=== PATIENT | male | born 1960 | race African-American/Black ===

== ENCOUNTER 2016-12-03 08:49 | Inpatient (IN) | payer MEDICAID ==
[~2016-12-03] VITALS: Ht 172.7 cm; Wt 76.3 kg
[~2016-12-03 08:49] MED LIST: LEVE10007 PO; MYCO500T3 PO; PRED1TAB PO; TACR1CAP4 PO; [UNRECOGNIZED DRUG - CODE] IM
[2016-12-03] MEDS ORDERED: SODIUM CHLORIDE FLUSH 10ML SYR IVF ONE (09:30)
[2016-12-03] MEDS ORDERED: ONDANSETRON 2MG/ML, 2ML IVPush ONE (09:30)
[2016-12-03] MEDS ORDERED: ONDANSETRON 2MG/ML, 2ML ONE (09:31)
[2016-12-03 09:41] LABS: HEMOGLOBIN 14.2 g/dL (13.7-18.0)
[2016-12-03 09:56] LABS: BLOOD UREA NITROGEN 46 mg/dL (7-18)
[2016-12-03 10:01] LABS: ASPARTATE AMINO TRANSFERASE 222 U/L (15-37)
[2016-12-03] MEDS ORDERED: SODIUM CHLORIDE 0.9% 1,000 ML IV ONE ×2 (10:17→11:16)
[2016-12-03] MEDS ORDERED: SODIUM CHLORIDE 0.9% 1,000ML IVBOLUS ONE (10:30)
[2016-12-03 10:43] LABS: HEPATITIS C VIRUS ANTIBODY Nonreactive (Nonreactive)
[2016-12-03] MEDS ORDERED: SODIUM CHLORIDE FLUSH 10ML SYR IVF PRN (11:30)
[2016-12-03] MEDS ORDERED: MORPHINE SULFATE 4 MG/ML, 1ML IVPush PRN (13:00)
[2016-12-03] MEDS ORDERED: POLYETHYLENE GLYCOL 17 GM PACKET PO PRN (13:00)
[2016-12-03] MEDS ORDERED: ONDANSETRON 2MG/ML, 2ML IVP PRN (13:00)
[2016-12-03] MEDS ORDERED: OXYcodone IR 5MG TABLET PO PRN (13:00)
[2016-12-03 13:36] VITALS: BP 117/70
[2016-12-03 14:00] VITALS: BP 117/70
[2016-12-03] MEDS: SODIUM CHLORIDE 0.9% 1,000 ML IV SCH (14:34)
[2016-12-03 15:52] LABS: PTH INTACT INTERPRETATION ** Comment **
[2016-12-03 16:22] LABS: PARATHYROID HORMONE INTACT 156.3 pg/mL (14-72)
[2016-12-03] MEDS: PANTOPRAZOLE GRAN. PKT 40 MG PO SCH (18:02)
[2016-12-03 19:05] VITALS: BP 108/63
[2016-12-03 20:22] LABS: ICTOTEST POSITIVE
[2016-12-03] MEDS: LEVETIRACETAM 500 MG TABLET PO SCH (20:37)
[2016-12-04] MEDS: SODIUM CHLORIDE 0.9% 1,000 ML IV SCH (00:52)
[2016-12-04 04:09] VITALS: BP 94/50
[2016-12-04 04:20] VITALS: BP 101/57
[2016-12-04 07:06] VITALS: BP 106/64
[2016-12-04 07:06] LABS: HEMOGLOBIN 12.3 g/dL (13.7-18.0)
[2016-12-04 07:12] LABS: ASPARTATE AMINO TRANSFERASE 153 U/L (15-37); BLOOD UREA NITROGEN 49 mg/dL (7-18)
[2016-12-04] MEDS: PANTOPRAZOLE GRAN. PKT 40 MG PO SCH (08:48)
[2016-12-04] MEDS: LEVETIRACETAM 500 MG TABLET PO SCH ×2 (08:48→21:46)
[2016-12-04] MEDS: SODIUM BICARB 8.4%,50ML SYR. 75 MEQ in SODIUM CHLORIDE 0.45% 1,000 ML IV SCH ×2 (12:06→22:49)
[2016-12-04 13:14] VITALS: BP 111/64
[2016-12-04 19:04] VITALS: BP 122/69
[2016-12-05 01:39] VITALS: BP 125/71
[2016-12-05 05:26] LABS: HEMOGLOBIN 11.6 g/dL (13.7-18.0)
[2016-12-05 05:39] LABS: BLOOD UREA NITROGEN 52 mg/dL (7-18)
[2016-12-05 05:43] LABS: ASPARTATE AMINO TRANSFERASE 146 U/L (15-37)
[2016-12-05] MEDS: LEVETIRACETAM 500 MG TABLET PO SCH ×2 (08:15→21:00)
[2016-12-05 08:51] VITALS: BP 110/74
[2016-12-05] MEDS: PANTOPROZOLE 40MG TABLET PO SCH (09:00)
[2016-12-05] MEDS: SODIUM BICARB 8.4%,50ML SYR. 75 MEQ in SODIUM CHLORIDE 0.45% 1,000 ML IV SCH ×2 (09:30→12:30)
[2016-12-05 14:07] VITALS: BP 120/79
[2016-12-05 15:43] LABS: ANA SCREEN NEGATIVE (Negative)
[2016-12-05 21:25] VITALS: BP 143/79
[2016-12-06] MEDS: SODIUM BICARB 8.4%,50ML SYR. 75 MEQ in SODIUM CHLORIDE 0.45% 1,000 ML IV SCH ×2 (00:09→17:41)
[2016-12-06 02:07] VITALS: BP 118/66
[2016-12-06 05:07] LABS: MYCOPHENOLIC ACID 0.6 ug/mL (1.0-3.5)
[2016-12-06 05:31] LABS: HEMOGLOBIN 11.3 g/dL (13.7-18.0)
[2016-12-06 05:41] LABS: BLOOD UREA NITROGEN 54 mg/dL (7-18)
[2016-12-06 05:45] LABS: ASPARTATE AMINO TRANSFERASE 183 U/L (15-37)
[2016-12-06 07:39] VITALS: BP 114/64
[2016-12-06] MEDS: LEVETIRACETAM 500 MG TABLET PO SCH ×2 (08:21→21:22)
[2016-12-06] MEDS: PANTOPROZOLE 40MG TABLET PO SCH (08:21)
[2016-12-06] MEDS ORDERED: FENTANYL PF 100 MCG/2ML ONE (12:56)
[2016-12-06] MEDS ORDERED: MIDAZOLAM 1 MG/ML, 2ML ONE (12:57)
[2016-12-06] MEDS ORDERED: PROPOFOL 10 MG/ML, 20ML ONE (12:59)
[2016-12-06] MEDS ORDERED: ONDANSETRON 2MG/ML, 2ML IVPush PRN (13:30)
[2016-12-06] MEDS ORDERED: OXYcodone 5 MG/5 ML ORAL.SOL UDC PO PRN (13:30)
[2016-12-06] MEDS ORDERED: HYDROmorphone 1 MG/ML, 1ML IV PRN (13:30)
[2016-12-06] MEDS ORDERED: FENTANYL PF 100 MCG/2ML IV PRN (13:30)
[2016-12-06 14:18] VITALS: BP 122/66
[2016-12-06 18:55] VITALS: BP 112/63
[2016-12-07 01:24] VITALS: BP 124/64
[2016-12-07 06:04] LABS: HEMOGLOBIN 11.6 g/dL (13.7-18.0)
[2016-12-07 06:10] LABS: ASPARTATE AMINO TRANSFERASE 295 U/L (15-37); BLOOD UREA NITROGEN 59 mg/dL (7-18)
[2016-12-07 06:43] VITALS: BP 128/76
[2016-12-07 06:53] VITALS: BP 118/69
[2016-12-07] MEDS: LEVETIRACETAM 500 MG TABLET PO SCH ×2 (10:35→20:19)
[2016-12-07] MEDS: PANTOPROZOLE 40MG TABLET PO SCH (10:35)
[2016-12-07] MEDS: SODIUM BICARB 8.4%,50ML SYR. 75 MEQ in SODIUM CHLORIDE 0.45% 1,000 ML IV SCH (10:55)
[2016-12-07 12:31] VITALS: BP 120/70
[2016-12-07 19:28] VITALS: BP 129/71
[2016-12-08 01:23] VITALS: BP 114/62
[2016-12-08] MEDS: SODIUM BICARB 8.4%,50ML SYR. 75 MEQ in SODIUM CHLORIDE 0.45% 1,000 ML IV SCH ×2 (04:17→17:56)
[2016-12-08 05:39] LABS: HEMOGLOBIN 11.3 g/dL (13.7-18.0)
[2016-12-08 05:58] LABS: ASPARTATE AMINO TRANSFERASE 380 U/L (15-37); BLOOD UREA NITROGEN 61 mg/dL (7-18)
[2016-12-08 07:51] VITALS: BP 107/63
[2016-12-08] MEDS: LEVETIRACETAM 500 MG TABLET PO SCH ×2 (09:18→21:06)
[2016-12-08] MEDS: PANTOPROZOLE 40MG TABLET PO SCH (09:18)
[2016-12-08 13:19] VITALS: BP 120/69
[2016-12-08 18:47] VITALS: BP 136/75
[2016-12-09 04:26] VITALS: BP 131/78
[2016-12-09 07:45] VITALS: BP 137/72
[2016-12-09] MEDS: PANTOPROZOLE 40MG TABLET PO SCH (07:49)
[2016-12-09] MEDS: LEVETIRACETAM 500 MG TABLET PO SCH ×2 (07:49→21:41)
[2016-12-09] MEDS: SODIUM BICARB 8.4%,50ML SYR. 75 MEQ in SODIUM CHLORIDE 0.45% 1,000 ML IV SCH ×2 (07:50→22:08)
[2016-12-09] MEDS ORDERED: PHYTONADIONE 10 MG/ML, 1ML SQ ONE (12:30)
[2016-12-09 13:12] VITALS: BP 126/75
[2016-12-09 18:55] VITALS: BP 132/74
[2016-12-10 05:08] VITALS: BP 115/64
[2016-12-10 06:15] LABS: BLOOD UREA NITROGEN 51 mg/dL (7-18)
[2016-12-10 06:18] LABS: ASPARTATE AMINO TRANSFERASE 318 U/L (15-37)
[2016-12-10] MEDS: PANTOPROZOLE 40MG TABLET PO SCH (07:51)
[2016-12-10] MEDS: LEVETIRACETAM 500 MG TABLET PO SCH ×2 (07:51→21:06)
[2016-12-10 08:03] VITALS: BP 126/70
[2016-12-10] MEDS: SODIUM BICARB 8.4%,50ML SYR. 75 MEQ in SODIUM CHLORIDE 0.45% 1,000 ML IV SCH (12:35)
[2016-12-10 14:41] VITALS: BP 126/72
[2016-12-10 20:00] VITALS: BP 130/74
[2016-12-11 02:00] VITALS: BP 121/65
[2016-12-11] MEDS: SODIUM BICARB 8.4%,50ML SYR. 75 MEQ in SODIUM CHLORIDE 0.45% 1,000 ML IV SCH (02:00)
[2016-12-11 05:46] LABS: HEMOGLOBIN 11.1 g/dL (13.7-18.0)
[2016-12-11 06:05] LABS: ASPARTATE AMINO TRANSFERASE 296 U/L (15-37); BLOOD UREA NITROGEN 47 mg/dL (7-18)
[2016-12-11 08:09] VITALS: BP 117/73
[2016-12-11] MEDS: LEVETIRACETAM 500 MG TABLET PO SCH ×2 (08:20→21:09)
[2016-12-11] MEDS: PANTOPROZOLE 40MG TABLET PO SCH (08:20)
[2016-12-11 13:13] VITALS: BP 127/79
[2016-12-11 19:47] VITALS: BP 131/81
[2016-12-12 03:58] VITALS: BP 123/74
[2016-12-12 06:32] LABS: ASPARTATE AMINO TRANSFERASE 256 U/L (15-37); BLOOD UREA NITROGEN 43 mg/dL (7-18)
[2016-12-12] MEDS: PANTOPROZOLE 40MG TABLET PO SCH (08:30)
[2016-12-12] MEDS: LEVETIRACETAM 500 MG TABLET PO SCH (08:31)
[2016-12-12 08:54] VITALS: BP 108/70
[2016-12-12] MEDS ORDERED: MYCO500T3 PO (11:59)
[2016-12-12] MEDS ORDERED: PANT40TA5 PO (11:59)
[2016-12-12] MEDS ORDERED: LEVE500T53 PO (11:59)
[2016-12-12] MEDS ORDERED: PRED20TA PO (11:59)
[2016-12-12 15:00] VITALS: BP 144/97
== END 2016-12-12 17:31 | disposition home or self-care (01) | DRG 441 ==
LOC: ED 10:46 → EDIP 11:16 → 4WST 13:32 → DCLOUNGE 12-12 16:32
PROVIDERS: ADMIT Internal Medicine; ATTEND Internal Medicine
PROC: 0T9B70Z Drainage of Bladder with Drainage Device, Via Natural or Artificial Opening (ICD-10-PCS; 2016-12-06)
PROC: 0DB68ZX Excision of Stomach, Via Natural or Artificial Opening Endoscopic, Diagnostic (ICD-10-PCS; principal; 2016-12-06 13:00)
DX: K72.00 Acute and subacute hepatic failure without coma (principal); K85.90 Acute pancreatitis without necrosis or infection, unspecified; E43 Unspecified severe protein-calorie malnutrition; N17.9 Acute kidney failure, unspecified; Z94.4 Liver transplant status; E46 Unspecified protein-calorie malnutrition; E87.2 Acidosis; D68.9 Coagulation defect, unspecified; T86.41 Liver transplant rejection; B19.10 Unspecified viral hepatitis B without hepatic coma; K70.10 Alcoholic hepatitis without ascites; K29.60 Other gastritis without bleeding; G40.909 Epilepsy, unspecified, not intractable, without status epilepticus; D72.829 Elevated white blood cell count, unspecified; G89.29 Other chronic pain; Z90.49 Acquired absence of other specified parts of digestive tract; K31.84 Gastroparesis; D64.9 Anemia, unspecified; E83.51 Hypocalcemia; N18.9 Chronic kidney disease, unspecified; Z91.19 Patient's noncompliance with other medical treatment and regimen; T38.0X5A Adverse effect of glucocorticoids and synthetic analogues, initial encounter; B96.81 Helicobacter pylori [H. pylori] as the cause of diseases classified elsewhere; Z68.25 Body mass index [BMI] 25.0-25.9, adult
CPT/HCPCS: 36415; 71010; 74181; 76700; 78264; 80053; 80074; 81001; 81256; 82010; 82140; 82150; 82306; 82310; 82436; 82542; 82570; 82728; 83010; 83516; 83540; 83550; 83605; 83615; 83690; 83735; 83880; 83970; 84100; 84133; 84156; 84300; 84550; 85025; 85610; 85730; 86038; 86706; 87205; 88305; 93005; 96374; J2250; J2405; J2704; J3010; J3430; A9541; J7030; J7512; J7517